=== PATIENT | male | born 1995 | race Caucasian/White ===

== ENCOUNTER 2023-02-11 16:19 | Outpatient (CLI) | payer OTHER, SELFPAY ==
--- NOTE | ~2023-02-11 | US_ITS ---
EXAMINATION: US retroperitoneal duplex ltd DATE: 02/11/2023 17:02 INDICATION: Essential hypertension TECHNIQUE: Multiple grayscale, color Doppler, and pulsed Doppler images of the kidneys and renal jefe ivan were obtained. COMPARISON: None. FINDINGS: The aorta peak systolic velocity is 174 cm/s. The right renal artery peak systolic velocity is 82 cm/ s in the proximal segment, 99 cm/s in the mid segment, and 135 cm/s in the distal segment. The left r enal artery peak systolic velocity is 113 cm/s in the proximal segment, 98 cm/s in the mid segment, a nd 77 cm/s in the distal segment. Bilateral kidneys demonstrate normal contour and echogenicity with no hydronephrosis. IMPRESSION: 1. No Doppler evidence of renal artery stenosis. Reviewed, dictated and finalized at location A.
== END 2023-02-11 16:20 | disposition home or self-care (01) ==
LOC: ANHIMG 16:28
DX: I10 Essential (primary) hypertension (principal)
CPT/HCPCS: 93976

== ENCOUNTER 2025-09-15 12:35 | Emergency (ER) | payer OTHER, SELFPAY ==
[2025-09-15 12:45] VITALS: BP 143/84; PULSE 81; RESP 16; TEMP 36.4; O2SAT 99
--- NOTE | 2025-09-15 12:59 | ED.URI ---
HPI - URI/Sore Throat General Chief Complaint: Upper Respiratory Infection Stated Complaint: Cough Time Seen by Provider: 09/15/25 12:50 Source: patient, RN notes reviewed and old records reviewed Mode of arrival: ambulatory Limitations: no limitations History of Present Illness HPI Narrative: 29 year old male presents to [facility] [place] care with 3 day history of cough with congestion expectoration of brownish colored phlegm. chills and body aches ,with fever noted on . Patient reports some left ear pain starting today. Patient reports that he has been taking Tylenol and DayQuil for his cough and congestion. Patient reports that his appetite has been decreased.He reports no GI symptoms of nausea vomiting or diarrhea. MD elicited complaint: cough and other (chills, congestion, body aches, fever and left ear pain today) Onset (ago): day(s) (3) Severity: moderate Description of mucous: other (brownish) Able to tolerate fluids by mouth: Yes Treatments prior to arrival: acetaminophen and other (DayQuil) Related Data Home Medications ?Medication ?Instructions ?Recorded ?Confirmed ?Last Taken ?Type escitalopram oxalate 20 mg tablet mg 09/15/25 Unknown History metoprolol succinate 25 mg mg PO 09/15/25 Unknown History tablet,extended release 24 hr Allergies Allergy/AdvReac Type Severity Reaction Status Date / Time No Known Allergies Allergy Verified 09/15/25 12:55 Review of Systems Review of Systems: CONSTITUTIONAL: reports malaise, chills, sweats, or fever. EYES: Denies visual changes, redness, or discharge. ENT: Reports rhinorrhea, congestion, sinus pressure, left otalgia and no sore throat. CARDIOVASCULAR: Denies chest pain, palpitations, or edema. RESPIRATORY: Reports productive cough.? Denies dyspnea. GASTROINTESTINAL: Denies abdominal pain, nausea, vomiting, diarrhea SKIN: Denies rash or itching. MUSCULOSKELETAL: Reports myalgia. NEUROLOGIC: Denies headache. All systems reviewed & are unremarkable except as noted in HPI and below PMFSH Past Medical History Medical History (Updated 09/15/25 @ 13:27 by Tammy Thompson APRN) Hypertension Anxiety Surgical History Surgical History (Updated 09/15/25 @ 13:28 by Tammy Thompson APRN) History of placement of ear tubes Social History Social History (Updated 09/15/25 @ 13:28 by SRIDHAR Hayes Smoking status: Never smoker Alcohol intake: current Alcohol use details: social Substance use type: does not use Living arrangements: with family Gender identity (if verbalized by the patient): Male Comments At time of signature, agree with nursing past medical, surgical, social and family history. There is no relevant family history pertinent to the presenting complaint Exam Narrative: GENERAL: Ill-appearing, well-nourished, and in no acute distress. HEAD: Normocephalic EYES: PERRLA, conjunctivae clear ENT: Nares clear, turbinates edematous and erythematous, clear discharge. Mucous membranes moist.Left TM red and bulging, Right TM pearly malik with dull light reflex; no tragal tenderness. Oropharynx erythematous without lesions. Tonsils not enlarged and without exudate, no drooling, no hoarseness, no trismus, uvula midline.post nasal drainage noted NECK: Supple. No lymphadenopathy CHEST: faint wheezes upper lobes on auscultation, breath sounds equal.+ wheezing,no rhonchi, rales, or stridor. No respiratory distress, speaks in full sentences.productive cough SAO2 99% on room air HEART: Regular rate and rhythm. No murmur heard. SKIN: Warm, dry, no rash. NEURO: Alert and oriented x3. PSYCH: Normal mood and affect Course Course Level of Care: Express Care Visit Vital Signs Vital signs: Vital Signs Temperature 36.4 C 09/15/25 12:45 Pulse Rate 81 09/15/25 12:45 Respiratory Rate 16 09/15/25 12:45 Blood Pressure 143/84 H 09/15/25 12:45 Pulse Oximetry 99 09/15/25 12:45 Oxygen Delivery Room Air 09/15/25 12:45 Temperature 36.4 C 09/15/25 12:45 Pulse Rate 81 09/15/25 12:45 Respiratory Rate 16 09/15/25 12:45 Blood Pressure 143/84 H 09/15/25 12:45 Pulse Oximetry 99 09/15/25 12:45 Oxygen Delivery Room Air 09/15/25 12:45 reviewed MDM MDM Narrative Medical decision making narrative: 29 year old male presents to express care with complaints of 3 day history of cough, congestion, chills, fever noted on Thursday with productive cough of brownish phlegm and left ear pain which started today. Patient tests negative for Covid antigen and Influenza A& B. Patient treated for ear infection and acute cough with antibiotic and prednisone with patient appropriate for out patient care and follow up. Anticipatory guidance and reasons to seek care in ED reviewed with understanding voiced. Differential Diagnosis Differential Diagnosis: Differential diagnostic considerations for upper respiratory infection include upper respiratory infection, croup, otitis media, sinusitis, viral infection, bronchitis, influenza, pharyngitis, strep, uvulitis.? Lab Data MDM Lab Attestation statement: I personally reviewed the patient's lab results. Lab results narrative: Covid antigen negative, Influenza A negative, Influenza B negative Critical Care Time Critical Care Time Critical Care Time: No Discharge Plan Discharge Clinical Impression: Acute cough Otitis media of left ear Qualifiers: Otitis media type: serous Chronicity: acute Recurrence: non-recurrent Qualified Code(s): H65.02 - Acute serous otitis media, left ear Patient Disposition: Home Condition: Stable Instructions: Antibiotic Form, Ear Infection (GEN), Acute Cough (ED) Additional Instructions: Increase fluids especially juices and water [id number] cough and cold medicine of your choice for your symptoms Zyrtec Claritin or Arely daily may include Coricidin brand decongestant Steroids as directed--take with food heat to the face 20-30 minutes 4-6 times a day for pain Salt water gargles, throat lozenges or throat sprays as desired Antibiotic as directed--finished the medication Tylenol or ibuprofen for any fever pain If your symptoms persist, change or worsen significantly before you can contact your personal physician then please, without delay, go to the emergency department for further evaluation. Follow-up with PCP in 7-10 days or sooner if needed Follow up with PCP soon in regards to your blood pressure which is elevated above threshold for referral. Blood pressure above 120/80 may indicate pre-hypertension. 143/84 Patient Language: Chinese Prescriptions: New amoxicillin-pot clavulanate 875-125 mg tablet 1 tablet PO Q12H Qty: 20 0RF prednisone 20 mg tablet 40 mg PO DAILY 5 Days Qty: 10 0RF No Action metoprolol succinate 25 mg tablet extended release 24 hr PO escitalopram oxalate 20 mg tablet Follow-up/Referrals: UNKNOWN,DOCTOR [Primary Care Provider] Time of Disposition: 13:12 Quality Pura Coma Scale Eyes: Open Verbal: Oriented and Alert Motor: Follows Commands Pura Coma Total Score: 15
[2025-09-15 13:19] LABS: EDCOVIDSCREEN Negative (Negative); EDINFLUASCREEN Negative (Negative); EDINFLUBSCREEN Negative (Negative)
== END 2025-09-15 13:18 | disposition home or self-care (01) ==
PROVIDERS: Emergency Provider Registered Nurse
DX: R05.1 Acute cough (principal); H65.02 Acute serous otitis media, left ear; I10 Essential (primary) hypertension; F41.9 Anxiety disorder, unspecified
CPT/HCPCS: 87426; 87804; 99203; G0463